=== PATIENT | male | born 1975 | race Two or more races ===

== ENCOUNTER 2018-07-30 19:51 | Emergency (ER) | payer BC, OTHER ==
[~2018-07-30] VITALS: Ht 167.6 cm; Wt 73.5 kg
--- NOTE | 2018-07-30 20:50 | NUR ---
43 Y/O MALE PLACED IN BED 14 C/O RIGHT EAR SWELLING.
[2018-07-30] MEDS ORDERED: LIDOCAINE /MPF 1% VIAL 5 ML VIAL IJ ONE (21:00)
[2018-07-30] MEDS ORDERED: LIDOCAINE 1% INJ 50 ML MDV IJ ONE (21:02)
[2018-07-30] MEDS ORDERED: ACETAMINOPHEN ES 500 MG TABLET ONE (21:15)
[2018-07-30] MEDS ORDERED: ACETAMINOPHEN 325 MG TABLET PO ONE (21:30)
--- NOTE | 2018-07-30 21:37 | NUR ---
DX - AURICLE INJURIES. SWELLING DRAINED. ACI WITH RX GIVEN. PT DISCHARGED HOME.
[2018-07-30 21:39] VITALS: BP 135/72
== END 2018-07-30 21:40 | disposition home or self-care (01) ==
LOC: ER 19:53
DX: S00.431A Contusion of right ear, initial encounter (principal); H61.121 Hematoma of pinna, right ear; J45.909 Unspecified asthma, uncomplicated; Z98.890 Other specified postprocedural states; W50.0XXA Accidental hit or strike by another person, initial encounter; Y93.89 Activity, other specified; Y92.89 Other specified places as the place of occurrence of the external cause; Y99.8 Other external cause status
CPT/HCPCS: A4606; A6403; J3490; Z7610

== ENCOUNTER 2024-04-10 21:58 | Emergency (ER) | payer BC ==
[~2024-04-10] VITALS: Ht 165.1 cm; Wt 73.0 kg
[2024-04-10 23:53] LABS: BASOPHILS % (AUTO) 0.7 % (0.0-2.0); EOSINOPHILS # (AUTO) 0.1 K/uL (0.0-0.7); EOSINOPHILS % (AUTO) 1.4 % (0.0-6.0); HEMATOCRIT 45 % (39-51); HEMOGLOBIN 14.9 g/dL (13.5-17.5); LYMPHOCYTES # (AUTO) 1.8 K/uL (0.8-4.8); LYMPHOCYTES % (AUTO) 33.3 % (20.0-44.0); MEAN CORPUSCULAR HEMOGLOBIN 30 PG (26.0-33.0); MEAN CORPUSCULAR HGB CONC 33 g/dl (31.0-36.0); MEAN CORPUSCULAR VOLUME 90 fL (80-96); MONOCYTES # (AUTO) 0.6 K/uL (0.1-1.30); MONOCYTES % (AUTO) 11.6 % (2.0-12.0); NEUTROPHILS # (AUTO) 2.8 K/uL (1.8-8.9); PLATELET COUNT (AUTO) 209 K/uL (150-450); RED BLOOD CELL COUNT(AUTO) 4.99 MIL/uL (4.5-6.0); RED CELL DISTRIBUTION WIDTH 13.7 % (11.5-15.0); WHITE BLOOD COUNT (AUTO) 5.3 K/uL (4.3-11.0)
[2024-04-11 00:01] LABS: CALCIUM, SERUM 9.2 mg/dL (8.5-10.1); CARBON DIOXIDE 29 mmol/L (21-32); CHLORIDE 106 mmol/L (98-107); CREATININE 0.8 mg/dL (0.6-1.3); GLUCOSE 106 mg/dL (74-106); SODIUM SERUM 142 mmol/L (136-145); UREA NITROGEN, BLOOD 14 mg/dL (7-18)
[2024-04-11 00:07] LABS: ALANINE AMINOTRANSFERASE 33 U/L (12-78); ALBUMIN 3.6 g/dL (3.4-5.0); ALKALINE PHOSPHATASE 76 U/L (46-116); ASPARTATE AMINOTRANSFERASE 21 U/L (15-37); BILIRUBIN,DIRECT 0.1 mg/dL (0.0-0.2); BILIRUBIN,TOTAL 0.3 mg/dL (0.2-1.0); TOTAL PROTEIN, SERUM 7.9 g/dL (6.4-8.2)
[2024-04-11 00:26] LABS: D-DIMER 0.29 mg/L(FEU (0.17-0.50); PARTIAL THROMBOPLASTIN TIME 27.2 SEC (24.3-34.3); PROTHROMBIN TIME 10.6 SECS (9.2-11.1)
[2024-04-11 01:02] VITALS: BP 132/80; TEMP 98.3; O2SAT 98
== END 2024-04-11 01:02 | disposition home or self-care (01) ==
LOC: ER 22:04
DX: R00.2 Palpitations (principal); J45.909 Unspecified asthma, uncomplicated
CPT/HCPCS: 36415; 71045-TC; 80048-TC; 80076-TC; 84484-TC; 85025-TC; 85378-TC; 85730-TC